=== PATIENT | female | born 1955 | race Caucasian/White ===

== ENCOUNTER 2023-11-22 01:51 | Emergency (ER) | payer BC, SELFPAY ==
--- NOTE | ~2023-11-22 | CT_ITS ---
EXAMINATION: CT HEAD WITHOUT CONTRAST CT CERVICAL SPINE WITHOUT CONTRAST CLINICAL INFORMATION: Fall. Pain. COMPARISON: None available. TECHNIQUE: Contiguous axial imaging was performed through the head and cervical spine without intravenous administration of contrast. This CT examination was performed using dose optimization techniques as appropriate, variously including the following: *Automated exposure control *Adjustment of mA and/or kV according to patient size (this includes techniques or standardized protocols for targeted exams where dose is matched to indication/reason for exam; i.e. extremities or head) *Use of iterative reconstruction technique DLP: 1199 mGy-cm FINDINGS: The lateral, third and fourth ventricles are normally outlined. The cortical sulci and basal cisterns are normally outlined as well. There is no acute territorial defect, hemorrhage or midline shift. The extra-axial spaces are unremarkable. Calvarium/scalp: The calvarium is intact. There is posterior parieto-occipital scalp soft tissue swelling more pronounced on the left. Maxillofacial sinuses and mastoids: There is small inferior left frontal and posterior right ethmoid sinus opacities/mucosal thickening. The remaining maxillofacial sinuses and mastoids are clear. Cervical spine: There is minimal anterolisthesis C4 over C5 and C7 over T1 with mild reversal of the expected cervical spine curvature. There is mild curvature of the cervical spine convex to the right on the coronal images. There is moderate C5-C6 and C6-C7 disc degenerative change with loss of disc space, endplate change and posterior osteophytes associated with diffuse tnme-[id number]-lxlbwrsa facet osteoarthritic hypertrophic change with mild C5-C6 and C6-C7 spinal canal narrowing and multilevel mild bilateral neuroforaminal narrowing. No fracture is seen. The soft tissues are unremarkable. The visualized upper lung salgado are clear. CT/CT cervical spine wo IV con IMPRESSION: 1. No acute intracranial process seen. 2. There is posterior parieto-occipital scalp soft tissue swelling without any calvarial fracture. 3. There is no acute fracture or dislocation in cervical spine. There is mild reversal of the expected cervical spine curvature. There are degenerative disc changes C5-C6 and C6-C7 disc levels with mild spinal canal and bilateral neuroforaminal narrowing. 4. Frontal and ethmoid sinus opacities.
--- NOTE | ~2023-11-22 | CT_ITS ---
EXAMINATION: CT HEAD WITHOUT CONTRAST CT CERVICAL SPINE WITHOUT CONTRAST CLINICAL INFORMATION: Fall. Pain. COMPARISON: None available. TECHNIQUE: Contiguous axial imaging was performed through the head and cervical spine without intravenous administration of contrast. This CT examination was performed using dose optimization techniques as appropriate, variously including the following: *Automated exposure control *Adjustment of mA and/or kV according to patient size (this includes techniques or standardized protocols for targeted exams where dose is matched to indication/reason for exam; i.e. extremities or head) *Use of iterative reconstruction technique DLP: 1199 mGy-cm FINDINGS: The lateral, third and fourth ventricles are normally outlined. The cortical sulci and basal cisterns are normally outlined as well. There is no acute territorial defect, hemorrhage or midline shift. The extra-axial spaces are unremarkable. Calvarium/scalp: The calvarium is intact. There is posterior parieto-occipital scalp soft tissue swelling more pronounced on the left. Maxillofacial sinuses and mastoids: There is small inferior left frontal and posterior right ethmoid sinus opacities/mucosal thickening. The remaining maxillofacial sinuses and mastoids are clear. Cervical spine: There is minimal anterolisthesis C4 over C5 and C7 over T1 with mild reversal of the expected cervical spine curvature. There is mild curvature of the cervical spine convex to the right on the coronal images. There is moderate C5-C6 and C6-C7 disc degenerative change with loss of disc space, endplate change and posterior osteophytes associated with diffuse [id number] facet osteoarthritic hypertrophic change with mild C5-C6 and C6-C7 spinal canal narrowing and multilevel mild bilateral neuroforaminal narrowing. No fracture is seen. The soft tissues are unremarkable. The visualized upper lung salgado are clear. CT/CT head/brain wo IV con IMPRESSION: 1. No acute intracranial process seen. 2. There is posterior parieto-occipital scalp soft tissue swelling without any calvarial fracture. 3. There is no acute fracture or dislocation in cervical spine. There is mild reversal of the expected cervical spine curvature. There are degenerative disc changes C5-C6 and C6-C7 disc levels with mild spinal canal and bilateral neuroforaminal narrowing. 4. Frontal and ethmoid sinus opacities.
[2023-11-22 01:59] VITALS: BMI 23.4
[2023-11-22 02:06] VITALS: BP 115/67; PULSE 60; RESP 14; TEMP 36.1; O2SAT 95
--- NOTE | 2023-11-22 03:22 | PC.NURSE ---
call with updates if possible Mohan
[2023-11-22 04:18] VITALS: BP 117/78; PULSE 84; RESP 20; TEMP 36.4; O2SAT 98
--- NOTE | 2023-11-22 04:19 | PC.NURSE ---
c collar removed by verbal permission by
--- NOTE | 2023-11-22 04:21 | PC.NURSE ---
ambulated with steady gait to restroom
[2023-11-22 06:22] VITALS: BP 96/48; PULSE 80; RESP 16; TEMP 36.3; O2SAT 95
[2023-11-22 07:02] VITALS: BP 122/56; PULSE 81; RESP 18
--- NOTE | 2023-11-22 07:02 | PC.NURSE ---
Alert and responsive, denies jocelin or discomfort, vss
--- NOTE | 2023-11-22 07:47 | ECG_ITS ---
Test Reason : FALL Blood Pressure : / mmHG Vent. Rate : 092 BPM Atrial Rate : 092 BPM P-R Int : 188 ms QRS Dur : 068 ms QT Int : 362 ms P-R-T Axes : 052 042 -35 degrees QTc Int : 447 ms Normal sinus rhythm Low voltage QRS Septal infarct , age undetermined Abnormal ECG No previous ECGs available Referred By: Peggy Greer Electronically Signed By:ADENIKE STEINER MD
[2023-11-22 08:27] LABS: MANUAL DIFF FLAG NO
[2023-11-22] MEDS: Diphth,Pertus(ACell),Tet Adult 0.5 ML SYRINGE IM (08:27)
[2023-11-22 08:28] LABS: Basophils Percent Auto 0.2 % (0-2); Eosinophils Percent Auto 0.1 % (0-4); Hematocrit 37.9 % (37.0-47.0); Hemoglobin 13.3 g/dl (12.0-16.0); Imm Gran Abs Auto 0.05 X10*3/uL (0.00-0.03); Imm Gran Pct Auto 0.4 % (0.0-0.4); Lymphocytes Absolute Auto 1.7 X10*3/uL (1.2-4.9); Lymphocytes Percent Auto 13.4 % (20-40); Mean Corpuscular HGB Conc 35.1 g/dl (31.0-35.0); Mean Corpuscular Hemoglobin 30.3 pg (27.0-33.0); Mean Corpuscular Volume 86.3 fL (80.0-98.0); Mean Platelet Volume 8.6 fL (9.4-12.3); Monocytes Absolute Auto 0.6 X10*3/uL (0.1-1.2); Monocytes Percent Auto 4.8 % (2-11); Neutrophils Absolute Auto 10.1 x10*3/uL (2.0-8.3); Neutrophils Percent Auto 81.1 % (45-73); Platelet Count 225 X10*3/uL (160-400); Red Blood Count 4.39 X10*6/uL (4.20-5.50); Red Cell Distribution Width 11.9 % (11.0-16.0); White Blood Count 12.4 X10*3/uL (4.8-10.8)
[2023-11-22 08:31] VITALS: PULSE 87; RESP 18; TEMP 36.7; O2SAT 97
--- NOTE | 2023-11-22 08:31 | ED_ITS ---
HPI - Fall General Chief Complaint: Fall Stated Complaint: Fall/ETOH Time Seen by Provider: 11/22/23 07:47 Source: patient and EMS Mode of arrival: EMS Limitations: other (Alcohol intoxication) History of Present Illness HPI Narrative: 68-year-old female presents to the emergency department via ambulance status post mechanical fall, patient reports that she was drinking with friends last night maybe had around 10 drinks, tripped, fell and hit the back of her head, no loss of consciousness, she thinks she has a cut to the back of her head. Patient was collared by EMS prior to arrival. Patient not on blood thinners. She tells me she has not up-to-date on tetanus shot. Denies any complaints at this time. Denies headache, vision changes, dizziness, weakness, neck pain, nausea, vomiting, abdominal pain, chest pain, shortness of breath, fevers,chills, numbness, tingling. Patient tells me she drinks frequently however is not interested in detox. Not suicidal or homicidal. Related Data Allergies Allergy/AdvReac Type Severity Reaction Status Date / Time No Known Allergies Allergy Verified 11/22/23 02:27 Review of Systems 2 Review of Systems: Yes all other systems are reviewed and are negative PMFSH Past Medical History Attestation statement: The following information was validated with the patient. Source: old records reviewed and nursing notes reviewed Social History Social History Advance Directives: No Advance Directives Information Provided: Yes Physical Exam 2 Vital Signs: Vital Signs: Last Vital Signs Temp 98.1 F 11/22/23 08:31 Pulse 87 11/22/23 08:31 Resp 18 11/22/23 08:31 BP 122/56 L 11/22/23 07:02 Pulse Ox 97 11/22/23 08:31 O2 Del Method Room Air 11/22/23 08:31 BMI result Body Mass Index 23.4 vss Appearance: Alert.? Oriented X3.? No acute distress.? Head: Normocephalic,no step-offs or deformities + 4 cm linear laceration to the occiput. No step-offs or deformities. Eyes: Pupils equal, round and reactive to light.? ENT: Pharynx normal.? Neck: Normal inspection.? Neck supple.? CVS: Normal heart rate and rhythm.? Pulses normal.? Respiratory: No respiratory distress.? Breath sounds normal.? Abdomen: Soft and nontender.? Skin: Skin warm and dry.? Normal skin color.? Normal skin turgor.? Extremities: No lower extremity edema.? No calf ttp. 5/5 strength to bilateral upper and lower extremities Back: No midline tenderness, no C-spine tenderness, full range of motion, no CVA tenderness bilaterally Neuro: Oriented X 3.? No motor deficit.? No sensory deficit. CN 2-12 intact Course Reevaluation(s) Reevaluation #1: CT head and brain no acute intracranial process seen there is a posterior parietal occipital scalp soft tissue swelling no clavicular fracture. No acute fractures or dislocations in the cervical spine. No traumatic subluxations. There is mild reversal of the expected cervical spine curvature and degenerative disc disease. Laceration repaired using 4 feliberto to the back of the head. Prior to the repair area was heavily irrigated with saline. Patient tolerated procedure well. Edges well approximated. Area not bleeding. Tetanus shot given. CBC with leukocytosis likely reactive and secondary to fall. EKG nonischemic. No ST elevations or inversions concerning for ischemia. No other medical complaints explain this. Chemistry pending. Ethanol pending. Time: 08:36 Reevaluation #2: Chemistry sodium of 130, patient awake, tolerating p.o., educated her on this and outlined on her discharge. Advised her to follow up with PCP for repeat labs. I do not have a previous labs to compare with unclear if this is her baseline. It is likely that this is her baseline if patient has history of alcohol use disorder. Educated patient on diagnosis and treatment plan, answered all question, patient verbalizes understanding. At this time patient will be discharged home, advised to return with new or worsening symptoms. Educated on worrisome signs and symptoms and when to return. At this time I feel comfortable discharge home. Time: 08:42 Medications Administered Discontinued Medications Generic Name Dose Route Start Last Admin Trade Name Freq PRN Reason Stop Dose Admin Diphtheria/Tetanus/Acell Pertussis 0.5 ml 11/22/23 07:49 11/22/23 08:27 Diphth,Pertus(Acell),Tet Adult 0.5 Ml Syringe IM 11/22/23 07:50 0.5 ml .ONCE ONE Administration Medical Decision Making Medical Decision Making [facility] Narrative: 68-year-old female presents with fall and alcohol intoxication, also noted to have a laceration to the back of her head. Not up-to-date on tetanus Physical exam significant for + 4 cm linear laceration to the occiput. No step-offs or deformities. History and physical exam concerning for fall likely secondary to mechanical fall/alcohol. Neurological assessment nonfocal. Unlikely intracranial hemorrhage, stroke, posterior stroke. No signs of traumatic injury to neck, chest, abdomen or pelvis. Unlikely metabolic derangements however will rule out. Plan at this time labs, imaging, repair. Differential Diagnosis Differential Diagnoses: The differential diagnosis associated with the presentation includes History and physical exam concerning for fall likely secondary to mechanical fall/alcohol. Neurological assessment nonfocal. Unlikely intracranial hemorrhage, stroke, posterior stroke. No signs of traumatic injury to neck, chest, abdomen or pelvis. Unlikely metabolic derangements however will rule out. Admission/Observation Consideration of admission/observation: Escalation of care including admission/observation considered Unlikely Lab Data [facility] Lab Attestation statement: I reviewed the patient's lab results. 11/22/23 08:24 11/22/23 08:19 Labs: Lab Results 11/22/23 11/22/23 Range/Units 08:19 08:24 WBC 12.4 H (4.8-10.8) X10*3/uL RBC 4.39 (4.20-5.50) X10*6/uL Hgb 13.3 (12.0-16.0) g/dl Hct 37.9 (37.0-47.0) % MCV 86.3 (80.0-98.0) fL MCH 30.3 (27.0-33.0) pg MCHC 35.1 H (31.0-35.0) g/dl RDW 11.9 (11.0-16.0) % Plt Count 225 (160-400) X10*3/uL MPV 8.6 L (9.4-12.3) fL Immature Gran % (Auto) 0.4 (0.0-0.4) % Neut % (Auto) 81.1 H (45-73) % Lymph % (Auto) 13.4 L (20-40) % Latimer % (Auto) 4.8 (2-11) % Eos % (Auto) 0.1 (0-4) % Baso % (Auto) 0.2 (0-2) % Lymph # (Auto) 1.7 (1.2-4.9) X10*3/uL [place]imer # (Auto) 0.6 (0.1-1.2) X10*3/uL Eos # (Auto) 0.0 (0.0-0.4) X10*3/uL Baso # (Auto) 0.0 (0.0-0.2) X10*3/uL Abs Immat Gran (auto) 0.05 H (0.00-0.03) X10*3/uL Absolute Neuts (auto) 10.1 H (2.0-8.3) x10*3/uL Absolute Nucleated RBC 0.000 (0.0-0.012) X10*3/uL Nucleated RBC % (auto) 0.0 (0.0-0.2) /100WBC Sodium 130 L (135-145) mmol/L Potassium 4.5 (3.3-5.1) mmol/L Chloride 99 (96-108) mmol/L Carbon Dioxide 20 L (22-29) mmol/L Anion Gap 16 (12-20) BUN 9 (9-16) mg/dL Creatinine 0.62 (0.5-1.4) mg/dL Estim Creat Clear Calc 80.2 Estimated GFR > 60 Random Glucose 107 (60-115) mg/dL Calcium 8.3 L (8.4-10.2) mg/dL Total Bilirubin 0.4 (0.0-1.0) mg/dL AST 34 H (5-31) U/L ALT 27 (0-31) U/L Alkaline Phosphatase 56 (39-117) U/L Total Protein 7.1 (6.5-8.0) g/dL Albumin 4.1 (3.5-5.0) g/dL Ethyl Alcohol 175 mg/dL Independent Interpretation I performed an independent interpretation of an: EKG (Vent. Rate : 092 BPM Atrial Rate : 092 BPM P-R Int : 188 ms QRS Dur : 068 ms QT Int : 362 ms P-R-T Axes : 052 042 -35 degrees QTc Int : 447 ms Normal sinus rhythm Low voltage QRS Septal infarct , age undetermined Abnormal ECG No previous ECGs available) and CT Scan (CT/CT head/brain wo IV con IMPRESSION: 1. No acute intracranial process seen. 2. There is posterior parieto-occipital scalp soft tissue swelling without any calvarial fracture. 3. There is no acute fracture or dislocation in cervical spine. There is mild reversal of the expected cervical spine cu) Radiology Impression Discussion of test interpretation with radiology: I have reviewed the radiologist's reading. Chronic Conditions Patient?s care impacted by: Other (Alcohol use disorder) Social Determinants Patient?s care significantly limited by Social Determinants of Health including: Alcoholism and drug addiction in family Critical Care Time Critical Care Time Critical Care Time: Yes Total Critical Care Time: 35 Attestation: I attest to this time spent taking care of the patient, obtaining history, physical, reviewing labs, imaging, lac repair Discharge Plan Discharge Clinical Impression: Concussion without loss of consciousness, Alcohol intoxication, Laceration of head, Acute hyponatremia Patient Disposition: Home, Self-Care Instructions: Laceration (ED), Concussion (ED), Alcohol Intoxication (ED) Additional Instructions: Take your medications as prescribed. If you were prescribed antibiotics today, it is important that you take your medication to their entirety, do not skip any doses, do not finish them early. Follow-up with your primary care provider this week. Return to the emergency department with new or worsening symptoms. Such as fevers, chills, chest pain, shortness of breath, nausea, vomiting, dizziness, headache, vision changes, lethargy In case of emergency call 911 Your sodium was noted to be 130 slightly on the low side, please drink plenty of fluids. Follow-up with your PCP in the next 1-3 days for repeat labs. CT/CT head/brain wo IV con IMPRESSION: 1. No acute intracranial process seen. 2. There is posterior parieto-occipital scalp soft tissue swelling without any calvarial fracture. 3. There is no acute fracture or dislocation in cervical spine. There is mild reversal of the expected cervical spine curvature. There are degenerative disc changes C5-C6 and C6-C7 disc levels with mild spinal canal and bilateral neuroforaminal narrowing. 4. Frontal and ethmoid sinus opacities. Referrals: Physician,Unknown J [Primary Care Provider] - 2 days Stand Alone Forms: Work/School Release
[2023-11-22 08:36] LABS: Alanine Aminotransferase 27 U/L (0-31); Albumin Level 4.1 g/dL (3.5-5.0); Alkaline Phosphatase 56 U/L (39-117); Anion Gap 16 (12-20); Aspartate Amino Transferase 34 U/L (5-31); Bilirubin Total 0.4 mg/dL (0.0-1.0); Blood Urea Nitrogen 9 mg/dL (9-16); Calcium 8.3 mg/dL (8.4-10.2); Carbon Dioxide 20 mmol/L (22-29); Chloride 99 mmol/L (96-108); Creatinine Clr Calc Pharmacy 80.2; Estimated Glomerular Filt Rate > 60; Ethanol 175 mg/dL; Glucose Random 107 mg/dL (60-115); Potassium 4.5 mmol/L (3.3-5.1); Sodium 130 mmol/L (135-145); Total Protein 7.1 g/dL (6.5-8.0)
== END 2023-11-22 08:49 | disposition home or self-care (01) ==
PROVIDERS: Physician Assistant; Emergency Provider Emergency Medicine
DX: S06.0X0A Concussion without loss of consciousness, initial encounter (principal); S01.01XA Laceration without foreign body of scalp, initial encounter; W19.XXXA Unspecified fall, initial encounter; Y93.9 Activity, unspecified; Y92.9 Unspecified place or not applicable; Y99.9 Unspecified external cause status; F10.129 Alcohol abuse with intoxication, unspecified; Y90.6 Blood alcohol level of 120-199 mg/100 ml; E87.1 Hypo-osmolality and hyponatremia; Z23 Encounter for immunization
CPT/HCPCS: 12002; 36415; 70450; 72125; 80053; 80307; 85025; 90471; 90715; 93005; 99284

== ENCOUNTER → 2023-11-22 07:47 | Outpatient (BNV) | payer BC, SELFPAY | PROVIDERS: Emergency Provider Emergency Medicine; Visit Provider Internal Medicine Cardiovascular Disease | DX: R94.31 Abnormal electrocardiogram [ECG] [EKG] (principal) | CPT/HCPCS: 93010 ==

== ENCOUNTER 2024-09-28 15:51 | Emergency (ER) | payer BC, SELFPAY ==
[2024-09-28] VITALS (7 sets, daily range): BP systolic 100–136; BP diastolic 53–81; PULSE 80–88; RESP 14–18; TEMP 36.7–37.2; O2SAT 95–100; BMI 26.8
--- NOTE | ~2024-09-28 | XR_ITS ---
CLINICAL HISTORY: cough Single view of the chest. COMPARISON: None FINDINGS: Normal heart and mediastinal contours. No consolidation. No pleural effusion or pneumothorax. No fracture identified. IMPRESSION: 1. No consolidation. This document has been electronically signed by: Trever John MD on 09/28/2024 16:56:51
--- NOTE | 2024-09-28 16:30 | ECG_ITS ---
Test Reason : SY[place]OPEE Blood Pressure : / mmHG Vent. Rate : 079 BPM Atrial Rate : 079 BPM P-R Int : 170 ms QRS Dur : 066 ms QT Int : 386 ms P-R-T Axes : 054 046 -01 degrees QTc Int : 442 ms Normal sinus rhythm Low voltage QRS Septal infarct (cited on or before 22-NOV-2023) T wave abnormality, consider inferior ischemia Abnormal ECG When compared with ECG of 22-NOV-2023 08:09, No significant change was found Referred By: Italia Dillon Electronically Signed By:ADENIKE STEINER MD
--- NOTE | 2024-09-28 16:30 | ED.SYNCOPE ---
HPI - Syncope General Chief Complaint: Syncope Stated Complaint: near syncope Time Seen by Provider: 09/28/24 16:24 Source: patient Limitations: no limitations History of Present Illness ED Provider: Italia Dillon PA-C HPI narrative: 68-year-old female with a history of hypertension, mitral valve prolapse, recent echocardiogram revealed no change from her baseline function, presents after near syncopal episode at home. Patient has been sick with a viral syndrome and fevers at home. She went out to a restaurant, had a beer, and began to feel nauseous and hot, she almost passed out. Denies preceding chest pain shortness of breath or palpitations. Her has been sick with the same symptoms. Related Data Allergies Allergy/AdvReac Type Severity Reaction Status Date / Time Iodinated Contrast Media Allergy Hives Verified 09/28/24 16:15 [Contrast Dye] Review of Systems Review of Systems: Yes all other systems are reviewed and are negative Constitutional: Constitutional: Reports fatigue, Reports fever(s), Reports lethargy and Reports malaise Cardiovascular: Cardiovascular: Denies chest pain, Denies palpitations and Denies dyspnea Respiratory: Respiratory: Denies cough and Denies dyspnea Gastrointestinal: Gastrointestinal: Denies diarrhea, Reports nausea and Denies vomiting Endocrine: Endocrine: Reports fatigue and Denies palpitations [facility] Past Medical History Attestation statement: The following information was validated with the patient. Social History Social History (System 11/26/23 @ 13:39 by Martina Zhang) Alcohol intake: current Smoked in Last 30 Days: No Use of substances other than those prescribed or required for medical reasons: No Advance Directives: No Advance Directives Information Provided: No Physical Exam Vital Signs: Vital Signs: Last Vital Signs Temp 98.0 F 09/28/24 19:46 Pulse 85 09/28/24 19:46 Resp 18 09/28/24 19:46 BP 131/79 09/28/24 19:46 Pulse Ox 97 09/28/24 19:46 O2 Del Method Room Air 09/28/24 19:46 BMI result Body Mass Index 26.8 Const: Other: Alert, overall well-appearing Orientation/consciousness: patient oriented x3 Resp: Effort & Inspection: normal respiratory effort Cardio: Other: Normal peripheral perfusion Skin: Other: Warm dry no rash Neuro: General: patient oriented x3, no focal motor deficits and CN's II-XI intact bilaterally Psych: Other: Calm cooperative Medications Administered Discontinued Medications Generic Name Dose Route Start Last Admin Trade Name Andrew PRN Reason Stop Dose Admin Sodium Chloride 1,000 mls @ 999 mls/hr 09/28/24 16:30 09/28/24 18:10 Ns IV 09/28/24 17:30 Infused .Q1H1M RAZA Infusion Ondansetron HCl 4 mg 09/28/24 16:30 09/28/24 16:58 Ondansetron Hcl 4 Mg/2 Ml Vial IVPUSH 09/28/24 16:31 Not Given ONCE ONE Medical Decision Making Medical Decision Making MDM Narrative: 68-year-old female with a history of hypertension, mitral valve prolapse, recent echocardiogram revealed no change from her baseline function, presents after near syncopal episode at home. Patient has been sick with a viral syndrome and fevers at home. She went out to a restaurant, had a beer, and began to feel nauseous and hot, she almost passed out. Denies preceding chest pain shortness of breath or palpitations. Her has been sick with the same symptoms. Problem: Mitral valve prolapse, hypertension, age , recent illness History: Per patient I have considered the following differential diagnoses: Cardiogenic syncope, vasovagal syncope, viral syndrome, dehydration, electrolyte abnormality, anemia Plan: Screening labs in process including a cardiac enzymes and a viral panel. This is likely viral induced given both her and her are sick with similar symptoms. With her mitral valve prolapse, we are considering underlying cardiogenic syncope, although, it does not fit with her clinical picture. Adding an EKG and a chest x-ray as well. We will give IV fluid. She could be dehydrated she could have an electrolyte abnormality could be anemic. I have independently reviewed the following tests: Labs: No leukocytosis, not anemic, no electrolyte abnormality, cardiac enzyme negative at less than 2.7, positive for influenza A EKG: Sinus rhythm, rate of 79, nonspecific T-wave abnormality noted inferior lead, no ectopy, QTC 442 Chest x-ray,IMPRESSION: 1. No consolidation. This document has been electronically signed by: Trever John MD on 09/28/2024 16:56:51 Lab Data 09/28/24 17:08 09/28/24 17:08 Labs: Lab Results 09/28/24 Range/Units 17:08 WBC 6.1 (4.8-10.8) X10*3/uL RBC 4.33 (4.20-5.50) X10*6/uL Hgb 13.3 (12.0-16.0) g/dl Hct 38.7 (37.0-47.0) % MCV 89.4 (80.0-98.0) fL MCH 30.7 (27.0-33.0) pg MCHC 34.4 (31.0-35.0) g/dl RDW 11.9 (11.0-16.0) % Plt Count 166 D (160-400) X10*3/uL MPV 9.0 L (9.4-12.3) fL Immature Gran % (Auto) 0.3 (0.0-0.4) % Neut % (Auto) 73.7 H (45-73) % Lymph % (Auto) 15.5 L (20-40) % Granite % (Auto) 10.1 (2-11) % Eos % (Auto) 0.2 (0-4) % Baso % (Auto) 0.2 (0-2) % Lymph # (Auto) 1.0 L (1.2-4.9) X10*3/uL Granite # (Auto) 0.6 (0.1-1.2) X10*3/uL Eos # (Auto) 0.0 (0.0-0.4) X10*3/uL Baso # (Auto) 0.0 (0.0-0.2) X10*3/uL Abs Immat Gran (auto) 0.02 (0.00-0.03) X10*3/uL Absolute Neuts (auto) 4.5 (2.0-8.3) x10*3/uL Absolute Nucleated RBC 0.000 (0.0-0.012) X10*3/uL Nucleated RBC % (auto) 0.0 (0.0-0.2) /100WBC Sodium 139 (135-145) mmol/L Potassium 3.5 D (3.3-5.1) mmol/L Chloride 106 (96-108) mmol/L Carbon Dioxide 21 L (22-29) mmol/L Anion Gap 16 (12-20) BUN 13 (9-16) mg/dL Creatinine 0.87 (0.5-1.4) mg/dL Estim Creat Clear Calc 70.6 Estimated GFR > 60 Random Glucose 98 (60-115) mg/dL Calcium 8.3 L (8.4-10.2) mg/dL Magnesium 2.1 (1.6-2.6) mg/dL Total Bilirubin 0.3 (0.0-1.0) mg/dL AST 33 H (5-31) U/L ALT 22 (0-31) U/L Alkaline Phosphatase 49 (39-117) U/L Troponin I High Sens < 2.7 (<3.5-17.0) ng/L Total Protein 6.9 (6.5-8.0) g/dL Albumin 3.9 (3.5-5.0) g/dL Lipase 25 (8-78) U/L Influenza Type A (PCR) POSITIVE A (Negative) Influenza Type B (PCR) NEGATIVE (Negative) RSV RNA Qual (PCR) NEGATIVE (Negative) SARS-CoV-2 RNA (RT-PCR) NEGATIVE (Negative) Discharge Plan Discharge Clinical Impression: Influenza A, Vasovagal syncope Patient Disposition: Home, Self-Care Instructions: Influenza (ED), Near Syncope (ED) Additional Instructions: You tested positive for influenza a, see home care instructions. This is the cause of your near syncopal episode. The remainder of your labs were normal there were no concerning changes on your EKG in the chest x-ray is clear. Follow up with your primary care provider as needed. Print Language: [place]se
[2024-09-28] MEDS: 0.9 % Sodium Chloride 1,000 ML 999 ML IV (16:53)
[2024-09-28 17:13] LABS: MANUAL DIFF FLAG NO
[2024-09-28 17:50] LABS: Basophils Percent Auto 0.2 % (0-2); Eosinophils Percent Auto 0.2 % (0-4); Hematocrit 38.7 % (37.0-47.0); Hemoglobin 13.3 g/dl (12.0-16.0); Imm Gran Abs Auto 0.02 X10*3/uL (0.00-0.03); Imm Gran Pct Auto 0.3 % (0.0-0.4); Lymphocytes Percent Auto 15.5 % (20-40); Mean Corpuscular HGB Conc 34.4 g/dl (31.0-35.0); Mean Corpuscular Hemoglobin 30.7 pg (27.0-33.0); Mean Corpuscular Volume 89.4 fL (80.0-98.0); Monocytes Absolute Auto 0.6 X10*3/uL (0.1-1.2); Monocytes Percent Auto 10.1 % (2-11); Neutrophils Absolute Auto 4.5 x10*3/uL (2.0-8.3); Neutrophils Percent Auto 73.7 % (45-73); Platelet Count 166 X10*3/uL (160-400); Red Blood Count 4.33 X10*6/uL (4.20-5.50); Red Cell Distribution Width 11.9 % (11.0-16.0); White Blood Count 6.1 X10*3/uL (4.8-10.8)
[2024-09-28 17:56] LABS: Alanine Aminotransferase 22 U/L (0-31); Albumin Level 3.9 g/dL (3.5-5.0); Alkaline Phosphatase 49 U/L (39-117); Anion Gap 16 (12-20); Aspartate Amino Transferase 33 U/L (5-31); Bilirubin Total 0.3 mg/dL (0.0-1.0); Blood Urea Nitrogen 13 mg/dL (9-16); Calcium 8.3 mg/dL (8.4-10.2); Carbon Dioxide 21 mmol/L (22-29); Chloride 106 mmol/L (96-108); Creatinine Clr Calc Pharmacy 70.6; Estimated Glomerular Filt Rate > 60; Glucose Random 98 mg/dL (60-115); Lipase 25 U/L (8-78); Magnesium 2.1 mg/dL (1.6-2.6); Potassium 3.5 mmol/L (3.3-5.1); Sodium 139 mmol/L (135-145); Total Protein 6.9 g/dL (6.5-8.0)
--- NOTE | 2024-09-28 18:21 | PC.NURSE ---
fluid bolus complete. pt states they are feeling better.
[2024-09-28 18:51] LABS: Troponin-I High Sensitivity < 2.7 ng/L (<3.5-17.0)
[2024-09-28 18:55] LABS: Influenza A PCR POSITIVE (Negative); Influenza B PCR NEGATIVE (Negative); Resp Syncy Virus RNA Qual PCR NEGATIVE (Negative); SARS COV2 PCR INHOUSE NEGATIVE (Negative)
--- NOTE | 2024-09-28 19:32 | PC.NURSE ---
Took over care from ADEEL Henley, Iv removed, pt changed into personal attire, pt awaiting discharge.
--- NOTE | 2024-09-28 19:49 | PC.NURSE ---
Reviewed discharge instructions with pt. pt verbalized understanding, no sign of distress.
== END 2024-09-28 19:57 | disposition home or self-care (01) ==
PROVIDERS: Physician Assistant Medical; Emergency Provider Emergency Medicine; PCP Family Medicine
DX: J10.1 Influenza due to other identified influenza virus with other respiratory manifestations (principal); R55 Syncope and collapse; R11.0 Nausea; R94.31 Abnormal electrocardiogram [ECG] [EKG]; Z03.818 Encounter for observation for suspected exposure to other biological agents ruled out; Z79.899 Other long term (current) drug therapy
CPT/HCPCS: 0241U; 71045; 80053; 83690; 83735; 84484; 85025; 93005; 96360; 99284; 99285

== ENCOUNTER → 2024-09-28 16:30 | Outpatient (BNV) | payer BC, SELFPAY | PROVIDERS: Emergency Provider Emergency Medicine; PCP Family Medicine; Visit Provider Internal Medicine Cardiovascular Disease | DX: R94.31 Abnormal electrocardiogram [ECG] [EKG] (principal) | CPT/HCPCS: 93010 ==

== ENCOUNTER → 2024-09-28 16:30 | Outpatient (BNV) | payer BC, SELFPAY | PROVIDERS: Emergency Provider Emergency Medicine; PCP Family Medicine; Visit Provider Radiology Diagnostic Radiology | DX: R55 Syncope and collapse (principal) | CPT/HCPCS: 71045 ==